=== PATIENT | female | born 1995 | race Two or more races ===

== ENCOUNTER 2020-11-13 12:39 | Emergency (ER) | payer MEDICAID ==
[~2020-11-13] VITALS: Ht 154.9 cm; Wt 148.0 kg
[2020-11-13 12:42] VITALS: BP 140/98
[2020-11-13 13:31] LABS: APPEARANCE,URINE TURBID (CLEAR); BILIRUBIN,URINE NEGATIVE (NEGATIVE); GLUCOSE, URINE (UA) NEGATIVE (NEGATIVE); KETONES,URINE >=80 mg/dL (NEGATIVE); LEUKOCYTE ESTERASE ,URINE SMALL (NEGATIVE); NITRATE,URINE NEGATIVE (NEGATIVE); OCCULT BLOOD,URINE LARGE (NEGATIVE); PROTEIN,URINE POS 1+ (NEGATIVE)
[2020-11-13 13:43] LABS: RBC,URINE 51-100 /HPF (0-2); WBC,URINE 0-2 /HPF (0-5)
[2020-11-13 13:44] LABS: BACTERIA,URINE None Seen /HPF (None Seen); SQUAMOUS EPITHELIAL CELL,UR Few /LPF (None Seen)
== END 2020-11-13 14:34 | disposition home or self-care (01) ==
LOC: EMS 12:51
DX: A64 Unspecified sexually transmitted disease (principal)
CPT/HCPCS: 81001; 87491; 87591; 99283